=== PATIENT | female | born 1985 | race Caucasian/White ===

== ENCOUNTER 2025-07-28 08:59 | Outpatient (CLI) | payer BC ==
[2025-07-28 09:27] LABS: URINE HCG POSITIVE (NEG)
== END 2025-07-28 23:59 | disposition home or self-care (01) ==
LOC: RAD 08:59
PROVIDERS: ATTEND Student in an Organized Health Care Education/Training Program
DX: Z32.01 Encounter for pregnancy test, result positive (principal)
CPT/HCPCS: 81025